=== PATIENT | female | born 1945 | race African-American/Black ===

== ENCOUNTER → 2018-05-29 | Outpatient (CLI) | payer OTHER ==
--- NOTE | 2018-05-29 13:16 | KCIC ---
Bilateral digital screening mammograms with 3D Tomosynthesis: Reason for examination: Routine screening. Comparison is made to previous studies dated 03/07/2012 and 03/01/2012. Bilateral mammograms in CC and oblique projections were obtained with 2-D imaging and 3-D tomosynthesis imaging on a Siemens Inspiration unit and reviewed on the workstation. Interpretation was made with the benefit of CAD. The skin and nipples show no abnormalities. No abnormal axillary lymph nodes are seen. The breast parenchyma shows scattered fibroglandular density. (Breast density: Category B.) There are no dominant masses, suspicious calcifications or architectural distortions. Biopsy clip remains present on the left. Impression: No evidence of malignancy. Recommend routine screening. BI-RADS Category 1: Negative. "Our facility is accredited by the [employer] Mammography Program." This patient's information has been entered into a reminder system for the patient to be notified with the results of her examination and a target date for the next mammogram. Electronically signed by: Leyla Maldonado MD (05/29/2018 1:13 PM) [id number]
== END | disposition home or self-care (01) ==
LOC: KCIC MAMMO 09:33
PROVIDERS: ATTEND Family Medicine
DX: Z12.31 Encounter for screening mammogram for malignant neoplasm of breast (principal)
CPT/HCPCS: 77063; 77067

== ENCOUNTER 2019-07-31 12:18 | Emergency (ER) | payer OTHER ==
[~2019-07-31] VITALS: Ht 165.1 cm; Wt 73.0 kg
[2019-07-31] MEDS ORDERED: ORPHENADRINE CITRATE 60 MG/2 ML VIAL. IV ONE (12:45)
[2019-07-31] MEDS ORDERED: ASPIRIN 325 MG TABLET PO ONE (12:45)
[2019-07-31 13:07] LABS: BASO # 0.1 x10^3/uL (0.0-0.2); BASO % 1 % (0-3); EOS % 0 % (0-3); HEMATOCRIT 46.1 % (36.0-47.0); HEMOGLOBIN 15.4 g/dL (12.0-15.5); LYMPH % 23 % (24-48); MEAN CORPUSCULAR HEMOGLOBIN 29 pg (25-35); MEAN CORPUSCULAR HGB CONC 33 g/dL (31-37); MEAN CORPUSCULAR VOLUME 88 fL (79-100); MONO # 0.5 x10^3/uL (0.0-1.1); MONO % 6 % (0-9); NEUT # 6.1 x10^3/uL (1.8-7.7); NEUT % 70 % (31-73); PLATELET COUNT 227 x10^3/uL (140-400); RED BLOOD COUNT 5.25 x10^6/uL (3.50-5.40); RED CELL DISTRIBUTION WIDTH 13.9 % (11.5-14.5); WHITE BLOOD COUNT 8.7 x10^3/uL (4.0-11.0)
--- NOTE | 2019-07-31 13:08 | PHYS DOC ---
Past Medical History Past Medical History: Hypertension (MIKEL KELLY APRN) Past Surgical History: Other Additional Past Surgical Histo: D&C (MIKEL KELLY APRN) Smoking Status: Never Smoker Alcohol Use: None (MIKEL KELLY APRN) General Adult EDM: Chief Complaint: HEADACHE HPI: HPI: Patient is a 74 year old AA female with a history of hypertension who presents to the emergency department with complaints of pain in the left side of her neck that radiates to her left shoulder that began 3 days ago. Patient denies any injury. She states that the pain is intermittent and occasionally gets worse when she moves her left arm. Patient states that moving her left arm does not always trigger the pain. She denies any chest pain, palpitations, dizziness, nausea, vomiting, diaphoresis, abdominal pain, cough, shortness of breath, or sore throat. She reports that the pain sometimes shoots to the back of her head and that she has had a bit of a headache with the pain. She denies any vision changes, photosensitivity, numbness, tingling, weakness, or difficulty speaking. She denies any recent injury or increase in activity. Patient states that the pain goes away on its own and sometimes then comes back frequently. She currently rates the pain a 5 out of 10 on the pain scale, she denies any alleviating or exacerbating factors. (MIKEL KELLY APRN) Review of Systems: Review of Systems: Constitutional: Denies fever or chills. [] Eyes: Denies change in visual acuity. [] HENT: Denies nasal congestion or sore throat. [] Respiratory: Denies cough or shortness of breath. [] Cardiovascular: Denies chest pain or edema. [] GI: Denies abdominal pain, nausea, vomiting, bloody stools or diarrhea. [] : Denies dysuria. [] Musculoskeletal: See HPI Integument: Denies rash. [] Neurologic: Denies focal weakness or sensory changes; see HPI Endocrine: Denies polyuria or polydipsia. [] Lymphatic: Denies swollen glands. [] Psychiatric: Denies depression or anxiety. [] (MIKEL KELLY APRN) Heart Score: HEART Score for Chest Pain: HEART Score for Chest Pain Response (Comments) Value History Slighlty/Non-Suspicious 0 ECG Normal 0 Age > 65 2 Risk Factors 1 or 2 Risk Factors 1 Troponin < Normal Limit 0 Total 3 Risk Factors: Risk Factors: DM, Current or recent (<one month) smoker, HTN, HLP, family history of CAD, obesity. Risk Scores: Score 0 - 3: 2.5% MACE over next 6 weeks - Discharge Home Score 4 - 6: 20.3% MACE over next 6 weeks - Admit for Clinical Observation Score 7 - 10: 72.7% MACE over next 6 weeks - Early Invasive Strategies (MIKEL KELLY APRN) Current Medications: Current Medications Medications (Trade) Dose Ordered Sig/Abdulaziz Start Time Stop Time Status Last Admin Dose Admin Aspirin (Mell Aspirin) 325 mg 1X ONCE 07/31/19 12:45 07/31/19 12:49 DC Orphenadrine Citrate (Norflex) 60 mg 1X ONCE 07/31/19 12:45 07/31/19 12:52 DC (MIKEL KELLY APRN) Allergies: Allergies: Allergies Coded Allergies Type Severity Reaction Last Updated Verified Sulfa (Sulfonamide Antibiotics) Allergy Unknown 07/31/19 Yes (MIKEL KELLY APRN) Physical Exam: PE: Constitutional: Well developed, well nourished, no acute distress, non-toxic appearance. [] HENT: Normocephalic, atraumatic, bilateral external ears normal, oropharynx moist, no oral exudates, nose normal. [] Eyes: PERRLA, EOMI, conjunctiva normal, no discharge. [] Neck: Normal range of motion, no bony tenderness, supple, no stridor; left trapezius TTP Cardiovascular:Heart rate regular rhythm, no murmur [] Lungs & Thorax: Bilateral breath sounds clear to auscultation, Respirations even and unlabored, no retractions, no respiratory distress [] Abdomen: soft, no tenderness Skin: Warm, dry, no erythema, no rash. [] Back: No tenderness Extremities: L shoulder: No bony tenderness, no cyanosis, no clubbing, ROM intact, no edema. [] Neurologic: Alert and oriented X 3, no focal deficits noted. [] Psychologic: Affect normal, judgement normal, mood normal. [] (MIKEL KELLY APRN) Current Patient Data: Vital Signs: Vital Signs Date Time Temp Pulse Resp B/P (MAP) Pulse Ox O2 Delivery O2 Flow Rate FiO2 07/31/19 12:35 98.4 86 16 135/65 (88) 99 Room Air 98.4 (MIKEL KELLY APRN) EKG: EK- SR leftward axis, incomplete RBBB, prolonged QT, NO STEMI read by Dr. Bustamante[][] (MIKEL KELLY APRN) Radiology/Procedures: Radiology/Procedures: PROCEDURE: CHEST AP ONLY Examination: CHEST AP ONLY History: Left shoulder pain Comparison: None. Findings: AP portable upright frontal view of the chest was obtained. The cardiomediastinal silhouette is normal. Lungs are clear. There is no pneumothorax. No pleural effusion is appreciated. No acute bone abnormality. Shoulders are are unremarkable for the patient's age. There is note made of left acromioclavicular joint degenerative narrowing which is much greater than on the right. No degenerative hypertrophy seen on the basis of x-ray exam. IMPRESSION: No acute cardiopulmonary process. PROCEDURE: CT HEAD WO CONTRAST Examination: CT HEAD WO CONTRAST History: Headache Comparison/Correlation: 07/27/2012 CT head without contrast Findings: Axial images of the head were obtained without contrast. Coronal reformatted images were provided. Ventricles are normal size. No intracranial hemorrhage, dementia, or mass effect. Globes and optic nerves are grossly unremarkable. Bony structures are unremarkable. Impression: No suspicious process. (MIKEL KELLY APRN) Course & Med Decision Making: Course & Med Decision Making Pertinent Labs and Imaging studies reviewed. (See chart for details) [] (MIKEL KELLY APRN) Dragon Disclaimer: Dragon Disclaimer: This electronic medical record was generated, in whole or in part, using a voice recognition dictation system. (MIKEL KELLY APRN) Departure Departure Impression: Primary Impression: Strain of left trapezius muscle Qualified Codes: S46.812A - Strain of other muscles, fascia and tendons at shoulder and upper arm level, left arm, initial encounter Additional Impressions: Hypokalemia Dehydration Disposition: 01 HOME, SELF-CARE Condition: STABLE Referrals: CHER CRAIN MD (PCP) Patient Instructions: Torticollis, Acute Additional Instructions: Fill the prescription and use as directed. Follow up with your primary care doctor next week. Return to the ER if your symptoms worsen. Scripts Orphenadrine Citrate (ORPHENADRINE CITRATE) 100 Mg Tablet.er 1 TAB PO BID PRN for PAIN for 10 Days, #20 TAB 0 Refills Prov: MIKEL KELLY APRN 07/31/19 Attending Signature Attending Signature I have reviewed the PA/BLENDER/BRAZE APPLICATOR's note and plan of care. I was available for consultation as needed during the patient's visit in the emergency department. I agree with the clinical impression, plan, and disposition. (MARY BUSTAMANTE DO) MIKEL KELLY APRN Jul 31, 2019 13:08 MARY BUSTAMANTE DO Jul 31, 2019 23:22
[2019-07-31 13:23] LABS: CALCIUM 9.2 mg/dL (8.5-10.1); CREATININE 1.2 mg/dL (0.6-1.0); GFR 53.3; POTASSIUM 3.1 mmol/L (3.5-5.1)
--- NOTE | 2019-07-31 13:25 | RAD ---
Examination: CHEST AP ONLY History: Left shoulder pain Comparison: None. Findings: AP portable upright frontal view of the chest was obtained. The cardiomediastinal silhouette is normal. Lungs are clear. There is no pneumothorax. No pleural effusion is appreciated. No acute bone abnormality. Shoulders are are unremarkable for the patient's age. There is note made of left acromioclavicular joint degenerative narrowing which is much greater than on the right. No degenerative hypertrophy seen on the basis of x-ray exam. IMPRESSION: No acute cardiopulmonary process. Electronically signed by: Andrew Ng MD (07/31/2019 1:22 PM) [id number]
[2019-07-31 13:28] LABS: ALBUMIN 3.5 g/dL (3.4-5.0); ALBUMIN/GLOBULIN RATIO 0.8 (1.0-1.7); MAGNESIUM 2.2 mg/dL (1.8-2.4); TOTAL BILIRUBIN 0.6 mg/dL (0.2-1.0); TOTAL PROTEIN 7.8 g/dL (6.4-8.2)
[2019-07-31] MEDS ORDERED: POTASSIUM CHLORIDE 20 MEQ TABLET.ER. PO ONE (13:45)
[2019-07-31] MEDS ORDERED: IV NORMAL SALINE 500ML BAG 500 ML IV ONE (13:45)
--- NOTE | 2019-07-31 13:59 | RAD ---
Examination: CT HEAD WO CONTRAST History: Headache Comparison/Correlation: 07/27/2012 CT head without contrast Findings: Axial images of the head were obtained without contrast. Coronal reformatted images were provided. Ventricles are normal size. No intracranial hemorrhage, dementia, or mass effect. Globes and optic nerves are grossly unremarkable. Bony structures are unremarkable. Impression: No suspicious process. Electronically signed by: Andrew Ng MD (07/31/2019 1:56 PM) [id number]
--- NOTE | 2019-07-31 14:10 | EKG ---
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
[2019-07-31] MEDS ORDERED: ORPH100T PO (14:27)
[2019-07-31 15:31] VITALS: BP 148/74
== END 2019-07-31 16:20 | disposition home or self-care (01) ==
LOC: ER 12:18
DX: S46.812A Strain of other muscles, fascia and tendons at shoulder and upper arm level, left arm, initial encounter (principal); E87.6 Hypokalemia; E86.0 Dehydration; M54.2 Cervicalgia; R51 Headache; I10 Essential (primary) hypertension; Z88.2 Allergy status to sulfonamides; X58.XXXA Exposure to other specified factors, initial encounter; Y93.89 Activity, other specified; Y92.89 Other specified places as the place of occurrence of the external cause; Y99.8 Other external cause status
CPT/HCPCS: 36415; 70450; 71045; 80053; 82553; 83735; 84484; 85025; 93005; 96361; 96374; 99285; J2360; J7040

== ENCOUNTER → 2019-11-06 | Outpatient (CLI) | payer OTHER ==
[~2019-11-06] MED LIST: ASPI-630 PO; GADOTERATE 7.5 MMOL/15ML VIAL. IVP ONE; LISI10TA2 PO; ORPH100T PO
--- NOTE | 2019-11-06 09:45 | KCIC ---
BRAIN WO/W CONTRAST Date: 11/06/2019 8:00 AM Indication: BI TEMPORAL VISUAL FIELD DEFECT. Eye exam yesterday presented with failed visual field test. Comparison: CT head 07/27/2012. Technique: Multiplanar multisequence MRI of the brain was performed with and without intravenous contrast using the standard protocol. 14 cc Dotarem contrast was administered intravenously during the exam. Findings: No acute infarct. No acute or chronic hemorrhage. The ventricles are normal in size and configuration without hydrocephalus. No abnormal enhancement. The scalp and calvarium are normal. The pituitary and sella are normal. No suprasellar mass. Optic chiasm appears normal. No Chiari malformation. Mild incompletely characterized degenerative spondylosis of the visualized upper cervical spine. The visualized orbits and globes are normal. The visualized paranasal sinuses are clear. The mastoid air cells are clear. Normal flow voids within the vertebral, basilar, and internal carotid arteries indicating patency. IMPRESSION: 1. No acute infarct or hemorrhage. 2. No mass or abnormal enhancement. Electronically signed by: Ash Smith MD (11/06/2019 9:42 AM) [id number]
== END | disposition home or self-care (01) ==
LOC: KCIC MRI 07:54
PROVIDERS: ATTEND Ophthalmology
DX: H53.459 Other localized visual field defect, unspecified eye (principal); M47.812 Spondylosis without myelopathy or radiculopathy, cervical region
CPT/HCPCS: 70553; 82565; A9575

== ENCOUNTER → 2020-12-08 | Outpatient (CLI) | payer OTHER ==
[~2020-12-08] MED LIST changes: -GADOTERATE 7.5 MMOL/15ML VIAL. IVP ONE; +LISI10TA16 PO; -LISI10TA2 PO
--- NOTE | 2020-12-08 13:18 | KCIC ---
INDICATION: Screening for osteopenia/osteoporosis. Reason: MENOPAUSAL AND POST MENOPAUSAL DISORDERS / Spl. Instructions: / History: COMPARISON: None. TECHNIQUE: Bone densitometry was performed through the lumbar spine and proximal femur. IMPRESSION: Lumbar Spine: BMD: 1.09 T-Score: 0.4 Range: Normal Proximal Femur: BMD: 0.89 T-Score: -0.5 Range: Normal World Health Organization Criteria for Bone Density: T-Score: > -1.0: Normal Range < -1.0 to -2.5: Osteopenic Range < -2.5: Osteoporotic Range Electronically signed by: Kojo Chen MD (12/08/2020 1:15 PM) [id number]
--- NOTE | 2020-12-09 09:42 | KCIC ---
Bilateral digital screening 2-D and 3-D (digital breast tiffanie synthesis) mammograms with CAD: Reason for examination: Routine screening. Comparison: Mammogram from 05/29/2018. Interpretation was made with the benefit of CAD. FINDINGS: Breast density: Category B. There are scattered areas of fibroglandular density. No suspicious breast mass, malignant appearing calcifications, or architectural distortion is seen. IMPRESSION: No evidence of malignancy. Recommend routine screening. Assessment: BI-RADS 1. Negative. Recommendation: Routine screening mammograms. The patient's information was entered into the mammography reminder system to receive her results by mail and give a target recall date for the next mammogram. A reminder letter will be generated. Electronically signed by: Yun Sung MD (12/09/2020 9:39 AM) [id number]
== END ==
LOC: KCIC MAMMO 09:37
PROVIDERS: ATTEND Family Medicine
DX: Z12.31 Encounter for screening mammogram for malignant neoplasm of breast (principal); Z13.820 Encounter for screening for osteoporosis; N95.9 Unspecified menopausal and perimenopausal disorder
CPT/HCPCS: 77063; 77067; 77080